=== PATIENT | male | born 1990 | race American Indian/Alaskan Native ===

== ENCOUNTER 2016-11-07 13:10 | Emergency (ER) | payer MEDICAID ==
[2016-11-07 13:36] VITALS: RESP 18; TEMP 97.9
[2016-11-07] MEDS ORDERED: cefTRIAXone (Rocephin) 250 mg Inj IM STA (14:04)
--- NOTE | 2016-11-07 14:08 | ED PDOC ---
Arrival/HPI - General Chief Complaint: Abdominal Pain Time Seen by Provider: 11/07/16 13:50 Historian: Patient - History of Present Illness Narrative History of Present Illness (Text): 11/07/16 14:00 This 26 yo male presents to this ED c/o dysuria and suprapubic abdominal pain since this morning. Patient also c/o hematuria, one episode this morning. Patient denies recent trauma, testicular pain, penile discharge, STD exposure, or rash. Time/Duration: Other (since this morning) Context: Home Past Medical History - Provider Review Nursing Documentation Reviewed: Yes - Infectious Disease Hx of Infectious Diseases: None - Psychiatric Hx Substance Use: No Family/Social History - Physician Review Nursing Documentation Reviewed: Yes Family/Social History: No Known Family HX Smoking Status: Never Smoked Hx Alcohol Use: Yes Frequency of alcohol use: Socially Hx Substance Use: No Allergies/Home Meds Allergies/Adverse Reactions: Allergies shellfish derived Allergy (Verified 10/16/16 21:40) Review of Systems - Review of Systems Constitutional: Normal. absent: Fatigue, Weight Change, Fevers Eyes: Normal ENT: Normal Respiratory: Normal Cardiovascular: Normal Gastrointestinal: Normal Genitourinary Male: Dysuria, Hematuria, Other (See HPI). absent: Frequency Musculoskeletal: Normal Skin: Normal Neurological: Normal Endocrine: Normal Hemo/Lymphatic: Normal Psychiatric: Normal Physical Exam Vital Signs Temp Pulse Resp BP Pulse Ox 11/07/16 15:41 57 L 18 111/64 99 11/07/16 13:39 97.9 F 55 L 18 105/62 97 11/07/16 13:32 97.9 F 55 L 18 105/62 98 Temperature: Afebrile Blood Pressure: Normal Pulse: Regular Respiratory Rate: Normal Appearance: Positive for: Well-Appearing, Non-Toxic, Comfortable Pain Distress: None Mental Status: Positive for: Alert and Oriented X 3 - Systems Exam Head: Present: Atraumatic, Normocephalic Pupils: Present: PERRL Extroacular Muscles: Present: EOMI Conjunctiva: Present: Normal Mouth: Present: Moist Mucous Membranes Neck: Present: Normal Range of Motion Respiratory/Chest: Present: Clear to Auscultation, Good Air Exchange. No: Respiratory Distress, Accessory Muscle Use, Wheezes, Rhonchi Cardiovascular: Present: Regular Rate and Rhythm, Normal S1, S2. No: Murmurs Abdomen: Present: Normal Bowel Sounds. No: Tenderness, Distention, Peritoneal Signs Genitourinary Male: Present: Normal External Genitalia, Other (Mils b/l epididymis tenderness on palpation. No scrotum erythema, or swelling.). No: Circumcised Penis, Lesions, Penile Discharge, Testicle Tenderness, Penile Swelling, Erythema, Hernias, Testicle Swelling Back: Present: Normal Inspection Upper Extremity: Present: Normal Inspection, Normal ROM, NORMAL PULSES, Neurovascularly Intact, Capillary Refill < 2s. No: Cyanosis, Edema Lower Extremity: Present: Normal Inspection, NORMAL PULSES, Neurovascularly Intact, Capillary Refill < 2 s. No: Edema Neurological: Present: GCS=15, CN II-XII Intact, Speech Normal Skin: Present: Warm, Dry, Normal Color. No: Rashes Psychiatric: Present: Alert, Oriented x 3 Medical Decision Making ED Course and Treatment: 11/07/16 15:25 Re-evaluation. Patient feels better. Discussed results and plan with patient who expresses understanding. All questions answered and there is agreement with the plan to discharge home with instructions. Patient stable for discharge. Return if symptoms persist or worsen. Re-evaluation Time: 15:25 Reassessment Condition: Re-examined, Improved - Lab Interpretations Lab Results: Lab Results 11/07/16 15:32: C.trachomatis RNA (TMA) Not detected, N.gonorrhoeae RNA (TMA) Not detected 11/07/16 14:55: Urine Color Yellow, Urine Appearance Sl cloudy, Urine pH 6.0, Ur Specific [place] >= 1.030, Urine Protein Negative, Urine Glucose (UA) Negative, Urine Ketones Trace H, Urine Blood Large H, Urine Nitrate Negative, Urine Bilirubin Negative, Urine Urobilinogen 0.2, Ur Leukocyte Esterase Negative , Urine RBC 5 - 10, Urine WBC Negative I have reviewed the lab results: Yes Interpretation: No clinic. lab abnormalty (pending GC/Chlam.) - Medication Orders Current Medication Orders: Discontinued Medications Azithromycin (Zithromax) 1,000 mg PO STAT STA PRN Reason: Protocol Stop: 11/07/16 14:06 Last Admin: 11/07/16 14:49 Dose: 1,000 MG Ceftriaxone Sodium (Rocephin) 250 mg IM STAT STA PRN Reason: Protocol Stop: 11/07/16 14:05 Last Admin: 11/07/16 14:49 Dose: 250 MG IM Administration Charges Document 11/07/16 14:49 OCS (Rec: 11/07/16 14:49 OCS [facility] [id number]) Injection Site MAR Injection Site Right Deltoid Charges for Administration # of IM Administrations 1 Disposition/Present on Arrival - Present on Arrival Any Indicators Present on Arrival: No History of DVT/PE: No History of Uncontrolled Diabetes: No Urinary Catheter: No History of Decub. Ulcer: No History Surgical Site Infection Following: None - Disposition Have Diagnosis and Disposition been Completed?: Yes Diagnosis: Dysuria Disposition: HOME/ ROUTINE Disposition Time: 15:26 Patient Plan: Discharge Condition: GOOD Discharge Instructions (ExitCare): Dysuria (ED) Additional Instructions: Call private doctor for follow up visit in 1-2 days. Take medication as instructed with food. Do not stop taking antibiotic. Do not stay on sun light while taking antibiotic. Do not have sexual intercourse untill you know result of urine culture and chlamydia test. Return to emergency if symptoms worsen. Always use protection. Prescriptions: Doxycycline Monohydrate 100 mg PO BID #28 tablet Referrals: Adam Garrido [Primary Care Provider] - Follow up with primary [facility] [Outside] - Follow up with primary Forms: WORK NOTE
[2016-11-07 15:09] LABS: URINE APPEARANCE SL CLOUDY (CLEAR); URINE BILIRUBIN NEGATIVE (NEGATIVE); URINE BLOOD LARGE (NEGATIVE); URINE COLOR YELLOW (YELLOW); URINE GLUCOSE (UA) NEGATIVE (NEGATIVE); URINE KETONE TRACE mg/dL (NEGATIVE); URINE LEUKOCYTE ESTERASE NEGATIVE Leu/uL (NEGATIVE); URINE PROTEIN NEGATIVE mg/dL (<30 mg/dL); URINE UROBILINOGEN 0.2 E.U./dL (<1 E.U./dL)
[2016-11-07 15:22] LABS: URINE WBC NEGATIVE /hpf (0-6)
[2016-11-07 15:41] VITALS: BP 111/64; PULSE 57; O2SAT 99
== END 2016-11-07 16:00 | disposition home or self-care (01) ==
LOC: ED 13:10 → MERGE 13:10 → ED 16:00
DX: R30.0 Dysuria (principal)
CPT/HCPCS: 81001; 87491; 87591; 96372; 99283; J0696